=== PATIENT | female | born 1975 | race Caucasian/White ===

== ENCOUNTER 2018-06-12 20:03 | Emergency (ER) | payer OTHER ==
[2018-06-12 23:17] LABS: ABS Basophils 0 10^3/ul (0-0.2); ABS Eosinophils 0.1 10^3/ul (0-0.6); ABS Lymphocytes 2.3 10^3/ul (1.0-4.8); ABS Monocytes 0.4 10^3/ul (0-0.8); ABS Nucleated RBC 0 10^3/ul; Eosinophil % 0.9 %; Hematocrit 41 % (33-41); Hemoglobin 13.7 g/dL (12.0-16.0); Mean Corpuscular HGB Conc 34 g/dL (31-36); Mean Corpuscular Hemoglobin 28 pg (27-31); Mean Corpuscular Volume 82 fL (80-97); Mean Platelet Volume 7.1 fL (7.4-10.4); Nucleated Red Blood Cells % 0.1; Platelet Count 197 10^3/uL (150-450); Red Blood Count 4.98 10^6 /uL (3.70-4.87); Red Cell Distribution Width 15 % (10.5-15); White Blood Count 7.8 10^3/uL (3.5-10.8)
[2018-06-12 23:35] LABS: Albumin/Globulin Ratio 1.5 (1-3); BUN/Creatinine Ratio 17.4 (8-20); C Reactive Protein 17.25 mg/L (<8.01); EGFR African American 112.9 (>60); EGFR Non-African American 93.3 (>60); Globulin 2.6 g/dL (2-4); Potassium 3.7 mmol/L (3.5-5.0); Total Bilirubin 0.4 mg/dL (0.2-1.0); Total Protein 6.6 g/dL (6.4-8.9)
[2018-06-12] MEDS ORDERED: Iohexol 300* (CONTRAST) 10 ML SDV IV ONE (23:55)
[2018-06-13] MEDS ORDERED: Iodixanol* (CONTRAST) 320 MG/ML 100 ML SDV IV ONE (00:11)
[2018-06-13 01:24] VITALS: BP 118/70
[2018-06-13] MEDS ORDERED: Ciprofloxacin TAB* 500 MG PO ONE (01:36)
[2018-06-13] MEDS ORDERED: predniSONE TAB* 20 MG PO ONE (01:36)
--- NOTE | 2018-06-13 01:39 | ED ---
Abdominal Pain/Female - HPI Summary HPI Summary: Patient complains of epigastric pain, nausea 2 months. Pain score is intermittent, occasionally worse with eating and sometimes random onset, sharp, worse with movement, worse 10/10, with baseline 1/10. States symptoms have been progressive since 06/08/18. Denies prior history of same prior to 2 months ago. Denies fever, cough, sore throat, CP, SOB, N/V/D, change in urine, vaginal symptoms, change in BM. This state history of chronic 2 to three-day constipation followed by 2-3 days episodes of diarrhea. Medical history is DM, hypothyroid. Nonsmoker, denies EtOH or recreational drug use. Abdominal surgical history is none. History of of 6 week old fetus 1 week ago with concurrent IUD placement. - History of Current Complaint Chief Complaint: EDAbdPain Stated Complaint: SEVERE PAIN IN UPPER ABD PER PT Time Seen by Provider: 06/12/18 22:57 Hx Obtained From: Patient Onset/Duration: Gradual Onset, Lasting Weeks Timing: Intermittent Episode Lasting Severity Initially: Moderate Severity Currently: Mild Pain Intensity: 1 Pain Scale Used: 0-10 Numeric Location: Epigastric Radiates: No Character: Sharp Aggravating Factor(s): Food, Movement Alleviating Factor(s): Nothing Associated Signs and Symptoms: Positive: Nausea Allergies/Adverse Reactions: Allergies Allergy/AdvReac Type Severity Reaction Status Date / Time antihistamines Allergy Unknown Uncoded 06/12/18 20:26 Reaction Details Home Medications: Home Medications Levothyroxine Sodium 125 mcg PO DAILY 06/13/18 [History Confirmed 06/13/18] Lipitor 10 mg PO DAILY 06/13/18 [History Confirmed 06/13/18] Metformin HCl 500 mg PO DAILY 06/13/18 [History Confirmed 06/13/18] PMH/Surg Hx/FS Hx/Imm Hx Endocrine/Hematology History: Reports: Hx Diabetes Cardiovascular History: Denies: Hx Pacemaker/ICD History: Denies: Hx Dialysis Sensory History: Denies: Hx Eye Prosthesis Opthamlomology History: Denies: Hx Legally Blind EENT History: Denies: Hx Deafness Neurological History: Denies: Hx Dementia Psychiatric History: Denies: Hx Autism Infectious Disease History: No Infectious Disease History: Denies: Traveled Outside the [place] in Last 30 Days - Social History Alcohol Use: None Substance Use Type: Reports: None Smoking Status (MU): Former Smoker Review of Systems Constitutional: Negative Eyes: Negative ENT: Negative Cardiovascular: Negative Respiratory: Negative Positive: Abdominal Pain, Nausea Genitourinary: Negative Musculoskeletal: Negative Skin: Negative Neurological: Negative Psychological: Normal All Other Systems Reviewed And Are Negative: Yes Physical Exam - Summary Physical Exam Summary: Patient tender to palpation only in the epigastrium. Abdominal exam otherwise unremarkable. Lung sounds clear to auscultation bilaterally. RRR. Triage Information Reviewed: Yes Vital Signs On Initial Exam: Initial Vitals Temp Pulse Resp BP Pulse Ox 97.4 F 86 16 122/98 98 06/12/18 20:20 06/12/18 20:20 06/12/18 20:20 06/12/18 20:20 06/12/18 20:20 Vital Signs Reviewed: Yes Appearance: Positive: Well-Appearing Skin: Positive: Warm Head/Face: Positive: Normal Head/Face Inspection Eyes: Positive: Normal Neck: Positive: Supple Respiratory/Lung Sounds: Positive: Clear to Auscultation Cardiovascular: Positive: Normal Abdomen Description: Positive: Other: Musculoskeletal: Positive: Normal Neurological: Positive: Normal Psychiatric: Positive: Normal AVPU Assessment: Alert - Cm Coma Scale Best Eye Response: 4 - Spontaneous Best Motor Response: 6 - Obeys Commands Best Verbal Response: 5 - Oriented Coma Scale Total: 15 Diagnostics - Vital Signs Vital Signs Temp Pulse Resp BP Pulse Ox 06/13/18 01:23 98.5 F 81 16 118/70 98 06/12/18 21:50 97.2 F 86 16 141/95 99 06/12/18 20:20 97.4 F 86 16 122/98 98 - Laboratory Lab Results: Lab Results 06/12/18 06/12/18 Range/Units 23:09 23:09 WBC 7.8 (3.5-10.8) 10^3/uL RBC 4.98 H (3.70-4.87) 10^6 /uL Hgb 13.7 (12.0-16.0) g/dL Hct 41 (33-41) % MCV 82 (80-97) fL MCH 28 (27-31) pg MCHC 34 (31-36) g/dL RDW 15 (10.5-15) % Plt Count 197 (150-450) 10^3/uL MPV 7.1 L (7.4-10.4) fL Neut % (Auto) 64.0 % Lymph % (Auto) 30.0 % Mcclain % (Auto) 4.9 % Eos % (Auto) 0.9 % Baso % (Auto) 0.2 % Absolute Neuts (auto) 5.0 (1.5-7.7) 10^3/ul Absolute Lymphs (auto) 2.3 (1.0-4.8) 10^3/ul Absolute Monos (auto) 0.4 (0-0.8) 10^3/ul Absolute Eos (auto) 0.1 (0-0.6) 10^3/ul Absolute Basos (auto) 0 (0-0.2) 10^3/ul Absolute Nucleated RBC 0 10^3/ul Nucleated RBC % 0.1 Sodium 136 (135-145) mmol/L Potassium 3.7 (3.5-5.0) mmol/L Chloride 106 (101-111) mmol/L Carbon Dioxide 25 (22-32) mmol/L Anion Gap 5 (2-11) mmol/L BUN 12 (6-24) mg/dL Creatinine 0.69 (0.51-0.95) mg/dL Est GFR ( Amer) 112.9 (>60) Est GFR (Non-Af Amer) 93.3 (>60) BUN/Creatinine Ratio 17.4 (8-20) Glucose 90 (70-100) mg/dL Calcium 9.0 (8.6-10.3) mg/dL Total Bilirubin 0.40 (0.2-1.0) mg/dL AST 10 L (13-39) U/L ALT 8 (7-52) U/L Alkaline Phosphatase 44 (34-104) U/L C-Reactive Protein 17.25 H (<8.01) mg/L Total Protein 6.6 (6.4-8.9) g/dL Albumin 4.0 (3.2-5.2) g/dL Globulin 2.6 (2-4) g/dL Albumin/Globulin Ratio 1.5 (1-3) Lipase 17 (11.0-82.0) U/L Beta HCG, Quant Cancelled Result Diagrams: 06/12/18 23:09 06/12/18 23:09 Lab Statement: Any lab studies that have been ordered have been reviewed, and results considered in the medical decision making process. Abdominal Pain Fem Course/Dx - Course Course Of Treatment: Patient complains of epigastric pain, nausea 2 months. Pain score is intermittent, occasionally worse with eating and sometimes random onset, sharp, worse with movement, worse 10/10, with baseline 1/10. States symptoms have been progressive since 06/08/18. Denies prior history of same prior to 2 months ago. Denies fever, cough, sore throat, CP, SOB, N/V/D, change in urine, vaginal symptoms, change in BM. This state history of chronic 2 to three-day constipation followed by 2-3 days episodes of diarrhea. Medical history is DM, hypothyroid. Nonsmoker, denies EtOH or recreational drug use. Abdominal surgical history is none. History of of 6 week old fetus 1 week ago with concurrent IUD placement. Physical exam:Patient tender to palpation only in the epigastrium. Abdominal exam otherwise unremarkable. Lung sounds clear to auscultation bilaterally. RRR. Vital signs within normal limits. Labs unremarkable. CT abdomen and pelvis positive for possible ileitis. Patient started on Cipro, prednisone. Given Rx for same as preventative measure. Advised to follow-up with primary care and GI doctor Yovanny for possible new onset Crohn's.. Patient understands and approves plan - Diagnoses Provider Diagnoses: Ileitis Discharge - Sign-Out/Discharge Documenting (check all that apply): Patient Departure Patient Received Moderate/Deep Sedation with Procedure: No - Discharge Plan Condition: Stable Disposition: HOME Prescriptions: Ciprofloxacin HCl [Cipro] 500 mg PO BID 10 Days #20 tablet predniSONE TAB* [Deltasone 20 MG TAB*] 40 mg PO DAILY 5 Days #10 tab Patient Education Materials: Crohn Disease (ED) Referrals: Cam ALBA,Sunday Mcwilliams [Primary Care Provider] - Additional Instructions: Follow-up with primary care and gastroenterology for further evaluation of possible ileitis and Crohn's disease. [employer] here in [place] is Dr. Hairston. Return to the ED for any new or worsening symptoms. - Billing Disposition and Condition Condition: STABLE Disposition: Home
== END 2018-06-13 01:45 | disposition home or self-care (01) ==
LOC: ED 20:03
DX: K52.9 Noninfective gastroenteritis and colitis, unspecified (principal); E11.9 Type 2 diabetes mellitus without complications; E03.9 Hypothyroidism, unspecified; Z97.5 Presence of (intrauterine) contraceptive device
CPT/HCPCS: 36415; 74177; 76705; 80053; 83690; 84702; 85025; 86140; 99283; A9270-GY; J7512; Q9967